=== PATIENT | female | born 1975 | race Caucasian/White ===

== ENCOUNTER → 2020-08-31 18:02 | Outpatient (CLI) | payer OTHER, SELFPAY ==
[2020-08-31 18:59] LABS: Basophils # 0.1 K/mm3 (0-0.2); Basophils % 0.7 % (0.1-2.0); Eosinophils # 0.2 K/mm3 (0.0-0.4); Eosinophils % 2.3 % (0.1-12.0); Hematocrit 46.3 % (37.0-47.0); Hemoglobin 15.5 g/dL (12.2-16.2); Lymphocytes # 3.1 K/mm3 (0.7-4.5); Lymphocytes % 34.5 % (10-50); Mean Corpuscular HGB Conc 33.5 g/dL (31.8-35.4); Mean Corpuscular Hemoglobin 31.9 pg (27.0-31.2); Mean Corpuscular Volume 95.1 fl (81-99); Monocytes # 0.3 K/mm3 (0.1-1.0); Monocytes % 3.3 % (1.7-9.3); Neutrophils # 5.3 K/mm3 (1.8-7.8); Neutrophils % 59.3 % (37.0-80.0); Platelet Count 316 K/mm3 (142-424); Red Blood Count 4.87 M/mm3 (4.20-5.40); Red Cell Distribution Width 13.1 % (11.5-17.5); White Blood Count 8.9 K/mm3 (4.8-10.8)
[2020-08-31 19:06] LABS: Chloride 97 mmol/L (98-107); Sodium 135 mmol/L (136-145)
[2020-08-31 19:08] LABS: Alanine Aminotransferase 17 U/L (12-78); Aspartate Amino Transferase 19 U/L (14-36); Blood Urea Nitrogen 14 mg/dl (7-17); Estimated Glomerular Filt Rate 110 ml/min (>60); GFR (African American) 133 ML/MIN (>60)
[2020-08-31 19:09] LABS: Albumin/Globulin Ratio 1.7 (1.1-1.8); Alkaline Phosphatase 77 U/L (38-126); Bilirubin,Total 0.3 mg/dl (0.2-1.3); Calcium 9.4 mg/dl (8.4-10.2); Carbon Dioxide 31 mmol/L (22.0-30.0); Cholesterol 268 mg/dl (140-200); Globulin 2.4 g/dL (1.3-3.2); HDL Cholesterol 30 mg/dl (40-60); Total Protein,Serum 6.4 g/dl (6.3-8.2)
[2020-08-31 19:20] LABS: Direct LDL Cholesterol 76.07 mg/dL (100-129)
[2020-08-31 19:23] LABS: Triglycerides 1009 mg/dl (30-150)
[2020-08-31 19:24] LABS: Chol/HDL Ratio 8.9 (1-3.5); Glucose 606 mg/dl (74-100)
[2020-08-31 21:39] LABS: Hemoglobin A1C 14.9 % (4.0-6.0)
== END ==
PROVIDERS: Visit Provider Family Medicine
DX: M79.7 Fibromyalgia (principal); E11.9 Type 2 diabetes mellitus without complications; F32.9 Major depressive disorder, single episode, unspecified; F41.9 Anxiety disorder, unspecified; Z79.4 Long term (current) use of insulin
CPT/HCPCS: 80053; 80061; 83036; 85025

== ENCOUNTER → 2020-09-09 15:18 | Outpatient (CLI) | payer MEDICAID, SELFPAY ==
--- NOTE | 2020-09-09 15:18 | CT_ITS ---
PROCEDURE: CT ABDOMEN PELVIS WO CON CLINICAL INDICATION: hepatomegaly NAUSEA, MID ABD PAIN, RIGHT SIDE ABD TENDERNESS X 3 WEEKS NO PRIOR COMPARISON: No exams were available for comparison TECHNIQUE: Axial images obtained with sagittal and coronal reformats. All CT scans at the facility use one or more dose reduction, viz: automated exposure control, ma/kV adjustment per patient size (including targeted exams where dose is matched to indication, i.e. head), or iterative reconstruction technique. FINDINGS: LOWER THORAX: There are atelectatic changes in the lung bases. ABDOMEN & PELVIS: The liver, spleen, and pancreas have an unremarkable appearance. There is mild nodularity of the left adrenal gland at 8 mm with an average density of 6 Hounsfield units consistent with an adenoma. No renal or ureteral calculi. No obvious renal mass on this unenhanced exam. The gallbladder has an unremarkable appearance. Unremarkable appendix. No intestinal obstruction or free air. There are few scattered colonic diverticula but no evidence of diverticulitis. The uterus shows some minimal lobularity anteriorly nonspecific. Pelvic ultrasound may provide more thorough evaluation. There is small amount of fluid in the cul-de-sac. Minimally prominent small bowel loops in the left upper quadrant measuring up to 3 cm without air-fluid levels nonspecific. Multiple unopacified bowel loops in the abdomen or pelvis which could obscure or mimic pathology. If symptoms persist, consider repeat exam with IV and oral contrast.. No acute bony findings. There are postsurgical changes of the anterior abdominal wall in the infraumbilical area IMPRESSION: 1. No evidence of appendicitis or obstructing ureteral calculus. 2. Mildly prominent small bowel loops in the left upper quadrant of questionable clinical significance. Multiple unopacified bowel loops in the abdomen or pelvis which could obscure or mimic pathology. If symptoms persist, consider repeat exam with IV and oral contrast. 3. Minimal lobularity of the uterus anteriorly which may be better evaluated with ultrasound with a scant amount of fluid in the pelvis. Dictated by: Jose Raul Vega MD 09/10/2020 09:05 Jose Raul Vega MD in [place] 09/10/2020 09:05
== END ==
PROVIDERS: PCP Family Medicine; Visit Provider Family Medicine
DX: R10.9 Unspecified abdominal pain (principal); R16.0 Hepatomegaly, not elsewhere classified
CPT/HCPCS: 74176

== ENCOUNTER → 2020-09-14 14:27 | Outpatient (CLI) | payer MEDICAID, SELFPAY ==
[2020-09-14 14:36] LABS: Chloride 102 mmol/L (98-107); Potassium 3.7 mmoL/L (3.5-5.1); Sodium 136 mmol/L (136-145)
[2020-09-14 14:38] LABS: Alanine Aminotransferase 14 U/L (12-78); Albumin Level 3.2 g/dl (3.5-5.0); Albumin/Globulin Ratio 1.4 (1.1-1.8); Alkaline Phosphatase 72 U/L (38-126); Anion Gap 10.7 mEq/L (5-15); Aspartate Amino Transferase 18 U/L (14-36); Basophils # 0.1 K/mm3 (0-0.2); Basophils % 0.5 % (0.1-2.0); Bilirubin,Total 0.2 mg/dl (0.2-1.3); Blood Urea Nitrogen 15 mg/dl (7-17); Carbon Dioxide 27 mmol/L (22.0-30.0); Eosinophils # 0.2 K/mm3 (0.0-0.4); Eosinophils % 1.5 % (0.1-12.0); Estimated Glomerular Filt Rate 110 ml/min (>60); GFR (African American) 133 ML/MIN (>60); Globulin 2.3 g/dL (1.3-3.2); Hematocrit 44.2 % (37.0-47.0); Hemoglobin 13.9 g/dL (12.2-16.2); Lymphocytes # 2.7 K/mm3 (0.7-4.5); Lymphocytes % 23.2 % (10-50); Mean Corpuscular HGB Conc 31.4 g/dL (31.8-35.4); Mean Corpuscular Hemoglobin 30.6 pg (27.0-31.2); Mean Corpuscular Volume 97.5 fl (81-99); Mean Platelet Volume 8.6 fl (7.4-10.4); Monocytes # 0.5 K/mm3 (0.1-1.0); Monocytes % 4.3 % (1.7-9.3); Neutrophils # 8.2 K/mm3 (1.8-7.8); Neutrophils % 70.5 % (37.0-80.0); Platelet Count 374 K/mm3 (142-424); Red Blood Count 4.53 M/mm3 (4.20-5.40); Red Cell Distribution Width 13.6 % (11.5-17.5); Total Protein,Serum 5.5 g/dl (6.3-8.2); White Blood Count 11.6 K/mm3 (4.8-10.8)
[2020-09-14 14:39] LABS: Calcium 8.6 mg/dl (8.4-10.2); Chol/HDL Ratio 6.7 (1-3.5); Cholesterol 247 mg/dl (140-200); Glucose 287 mg/dl (74-100); HDL Cholesterol 37 mg/dl (40-60); Triglycerides 354 mg/dl (30-150); VLDL Cholesterol 71 mg/dL (0-40)
[2020-09-14 14:50] LABS: Direct LDL Cholesterol 148.67 mg/dL (100-129)
[2020-09-14 14:56] LABS: T4 (Thyroxine) 7.7 ug/dl (5.53-11.0)
[2020-09-14 15:00] LABS: Creatinine,Urine Random 70 mg/dL (Not Estab.)
[2020-09-14 15:10] LABS: Thyroid Stimulating Hormone 3.39 uIU/mL (0.465-4.68)
[2020-09-14 15:12] LABS: Hemoglobin A1C 12.3 % (4.0-6.0)
[2020-09-14 15:51] LABS: Microalbumin < 6.000 mg/L (0-16.7)
== END ==
PROVIDERS: Visit Provider Family Medicine
DX: E11.9 Type 2 diabetes mellitus without complications (principal); Z79.4 Long term (current) use of insulin
CPT/HCPCS: 80053; 80061; 82043; 82570; 83036; 84436; 84443; 85025

== ENCOUNTER → 2021-02-09 13:51 | Outpatient (CLI) | payer OTHER, MEDICAID, SELFPAY ==
[2021-02-09 14:24] LABS: Chloride 104 mmol/L (98-107)
[2021-02-09 14:25] LABS: Sodium 136 mmol/L (136-145)
[2021-02-09 14:27] LABS: Alanine Aminotransferase 12 U/L (12-78); Alkaline Phosphatase 87 U/L (38-126); Aspartate Amino Transferase 22 U/L (14-36); Bilirubin,Total 0.2 mg/dl (0.2-1.3); Blood Urea Nitrogen 11 mg/dl (7-17); Carbon Dioxide 28 mmol/L (22.0-30.0); Estimated Glomerular Filt Rate 135 ml/min (>60); GFR (African American) 163 ML/MIN (>60)
[2021-02-09 14:28] LABS: Albumin Level 3.6 g/dl (3.5-5.0); Albumin/Globulin Ratio 1.6 (1.1-1.8); Cholesterol 251 mg/dl (140-200); Globulin 2.3 g/dL (1.3-3.2); Glucose 261 mg/dl (74-100); HDL Cholesterol 28 mg/dl (40-60); Lipase 124 U/L (23-300); Total Protein,Serum 5.9 g/dl (6.3-8.2)
[2021-02-09 14:40] LABS: Direct LDL Cholesterol 98.69 mg/dL (100-129)
[2021-02-09 14:48] LABS: Triglycerides 847 mg/dl (30-150)
[2021-02-09 14:51] LABS: Basophils # 0.1 K/mm3 (0-0.2); Basophils % 0.5 % (0.1-2.0); Eosinophils # 0.3 K/mm3 (0.0-0.4); Eosinophils % 2.7 % (0.1-12.0); Hematocrit 44.4 % (37.0-47.0); Hemoglobin 14.4 g/dL (12.2-16.2); Lymphocytes # 3.3 K/mm3 (0.7-4.5); Lymphocytes % 30.9 % (10-50); Mean Corpuscular HGB Conc 32.4 g/dL (31.8-35.4); Mean Corpuscular Hemoglobin 30.6 pg (27.0-31.2); Mean Corpuscular Volume 94.4 fl (81-99); Mean Platelet Volume 7.9 fl (7.4-10.4); Monocytes # 0.3 K/mm3 (0.1-1.0); Monocytes % 3.2 % (1.7-9.3); Neutrophils # 6.6 K/mm3 (1.8-7.8); Neutrophils % 62.6 % (37.0-80.0); Platelet Count 360 K/mm3 (142-424); White Blood Count 10.5 K/mm3 (4.8-10.8)
[2021-02-09 14:59] LABS: Microalbumin/Creatinine Ratio 36.9
[2021-02-09 15:00] LABS: Creatinine,Urine Random 65 mg/dL (Not Estab.); Thyroid Stimulating Hormone 1.19 uIU/mL (0.465-4.68)
[2021-02-09 15:09] LABS: 25-OH Vitamin D, Total < 12.8 ng/mL (30-100)
[2021-02-09 16:53] LABS: Hemoglobin A1C > 14.0 % (4.0-6.0)
[2021-02-09 20:04] LABS: T4 (Thyroxine) 7.2 ug/dl (5.53-11.0)
== END ==
PROVIDERS: Visit Provider Family Medicine
DX: E11.9 Type 2 diabetes mellitus without complications (principal); Z79.4 Long term (current) use of insulin; Z79.899 Other long term (current) drug therapy
CPT/HCPCS: 80053; 80061; 82043; 82306; 82570; 83036; 83690; 84436; 84443; 85025

== ENCOUNTER → 2021-03-09 17:57 | Outpatient (CLI) | payer OTHER, MEDICAID, SELFPAY ==
[2021-03-09 19:38] LABS: Lipase 600 U/L (23-300)
== END ==
PROVIDERS: Visit Provider Family Medicine
DX: R10.9 Unspecified abdominal pain (principal)
CPT/HCPCS: 83690

== ENCOUNTER 2021-03-10 18:44 | Emergency (ER) | payer OTHER, MEDICAID, SELFPAY ==
[2021-03-10 19:10] VITALS: BP 126/75; PULSE 84; RESP 16; TEMP 36.8; O2SAT 97; BMI 27.4
--- NOTE | 2021-03-10 19:40 | CT_ITS ---
PROCEDURE: CT ABDOMEN PELVIS W CON CLINICAL INDICATION: RUQ pain Epigastric and left upper quadrant pain COMPARISON: CT CT ABDOMEN PELVIS WO CON from 09/09/2020 TECHNIQUE: IV Contrast: 75ML Isovue 370 Oral Contrast None Axial images obtained with sagittal and coronal reformats. All CT scans at the facility use one or more dose reduction, viz: automated exposure control, ma/kV adjustment per patient size (including targeted exams where dose is matched to indication, i.e. head), or iterative reconstruction technique. FINDINGS: LOWER THORAX: Atelectatic are fibrotic changes are present in the right middle lobe and lingula. Faint ground-glass attenuation noted in the lung bases ABDOMEN & PELVIS: The liver, spleen, adrenal glands, pancreas, and kidneys show no acute finding. There is some mild scarring of the left kidney. No renal or ureteral calculi. No intestinal obstruction or free air. There is a mild amount of retained colonic feces. The appendix is slightly prominent but there is no stranding of the periappendiceal fat. Air is present in the vaginal region consistent with a tampon. No pelvic mass or abnormal fluid collection. There is colonic diverticulosis but no evidence of diverticulitis. There is a tiny umbilical hernia containing fat Scattered small sclerotic foci in the ilium and sacrum suggesting small bone islands. IMPRESSION: 1. No acute finding. 2. Mild amount of retained colonic feces. 3. Colonic diverticulosis but no evidence of diverticulitis Dictated by: Jose Raul Vega MD 03/11/2021 09:26 Jose Raul Vega MD in [place] 03/11/2021 09:26
[2021-03-10 20:15] LABS: Basophils # 0.1 K/mm3 (0-0.2); Basophils % 0.6 % (0.1-2.0); Eosinophils # 0.2 K/mm3 (0.0-0.4); Eosinophils % 1.4 % (0.1-12.0); Hematocrit 41.9 % (37.0-47.0); Lymphocytes # 3.8 K/mm3 (0.7-4.5); Lymphocytes % 27.4 % (10-50); Mean Corpuscular HGB Conc 33.4 g/dL (31.8-35.4); Mean Corpuscular Hemoglobin 30.2 pg (27.0-31.2); Mean Corpuscular Volume 90.6 fl (81-99); Mean Platelet Volume 6.8 fl (7.4-10.4); Monocytes # 0.4 K/mm3 (0.1-1.0); Monocytes % 2.7 % (1.7-9.3); Neutrophils # 9.4 K/mm3 (1.8-7.8); Neutrophils % 67.9 % (37.0-80.0); Platelet Count 339 K/mm3 (142-424); Red Blood Count 4.63 M/mm3 (4.20-5.40); Red Cell Distribution Width 13.3 % (11.5-17.5); White Blood Count 13.8 K/mm3 (4.8-10.8)
--- NOTE | 2021-03-10 20:17 | HMH.EDABDPAI ---
ED Disposition Clinical Impression: Abdominal pain Qualifiers: Abdominal location: generalized Qualified Code(s): R10.84 - Generalized abdominal pain Diabetes Qualifiers: Diabetes mellitus type: type 2 Diabetes mellitus penitentiary insulin use: unspecified penitentiary insulin use status Diabetes mellitus complication status: without complication Qualified Code(s): E11.9 - Type 2 diabetes mellitus without complications Disposition: Home, Self-Care Condition on Discharge: Good Instructions: DI for Acute Abdominal Pain Additional Instructions: Please follow up with Dr. Burton as soon as possible for further evaluation of your abdominal pain. Please have your gastric emptying study done as an outpatient. Please return to the ER within 24-48 hours with any new symptoms, worsening symptoms, or other concerns. Referrals: nAil Burton MD [Primary Care Provider] - - Critical Care Critical Care Time: No Attestation: On 03/10/21, the high probability of a clinically significant, sudden or life threatening deterioration of the following system(s) required my full and direct attention, intervention and personal management. The time I documented below is in addition to time spent performing reported procedures but includes the following listed in this critical care notation. Medical Decision Making - Jorge Inquiry Pt receiving controlled substance: No Vital Signs: 03/10/21 19:10 Temperature 98.3 F Temperature Source Oral Pulse Rate [Right] 84 Respiratory Rate 16 Blood Pressure [Right Arm] 126/75 Blood Pressure Mean [Right Arm] 92 Blood Pressure Source [Right Arm] Automatic Cuff Blood Pressure Position [Right Arm] Supine 02 Sat by Pulse Oximetry 97 Oxygen Delivery Method Room Air - Lab Data Lab Results 03/10/21 19:50: WBC 13.8 H, RBC 4.63, Hgb 14.0, Hct 41.9, MCV 90.6, MCH 30.2, MCHC 33.4, RDW 13.3, Plt Count 339, MPV 6.8 L, Neut % (Auto) 67.9, Lymph % (Auto) 27.4, [place] % (Auto) 2.7, Eos % (Auto) 1.4, Baso % (Auto) 0.6, Neut # (Auto) 9.4 H, Lymph # (Auto) 3.8, [place] # (Auto) 0.4, Eos # (Auto) 0.2, Baso # (Auto) 0.1 03/10/21 19:50: Sodium 135 L, Potassium 4.0, Chloride 99, Carbon Dioxide 30, Anion Gap 10.0, BUN 8, Creatinine 0.60, Estimated Creat Clear 139, Estimated GFR 109, Est GFR ( Amer) 132, Glucose 264 H, Calcium 9.0, Total Bilirubin 0.4, AST 23, ALT 14, Alkaline Phosphatase 71, Total Protein 6.5, Albumin 4.1, Globulin 2.4, Albumin/Globulin Ratio 1.7, Amylase 49, Lipase 65 03/10/21 21:41: Urine Color Yellow, Urine Appearance Clear, Urine pH 6.0, Ur Specific [place] <= 1.005, Urine Protein Negative, Urine Glucose (UA) 3+, Urine Ketones Negative, Urine Blood 1+, Urine Nitrate Negative, Urine Bilirubin Negative, Urine Urobilinogen 0.2, Ur Leukocyte Esterase 1+ A 03/10/21 21:41: Urine Opiates Screen Positive H, Urine Methadone Screen Negative, Ur Barbituates Screen Negative, Ur Phencyclidine Scrn Negative, Ur Amphetamines Screen Negative, U Benzodiazepines Scrn Positive H, Urine Cocaine Screen Negative, U Marijuana (THC) Screen Positive H Result diagrams: 03/10/21 19:50 03/10/21 19:50 Orders (Tests/Meds): ED MEDICATIONS Generic Name Dose Route Start Last Admin Trade Name Freq PRN Reason Stop Dose Admin Lactated Ringer's 1,000 mls @ 999 mls/hr 03/10/21 20:15 03/10/21 20:18 Lactated Ringer's 1000 Ml Bag IV 03/10/21 21:15 999 mls/hr .Q1H1M KENYATTA Administration Morphine Sulfate 4 mg 03/10/21 20:13 03/10/21 20:17 Morphine 4mg/Ml Syringe IV 04/09/21 20:12 4 mg Q2HP PRN Administration Mild to Moderate Pain Nicotine 21 mg 03/10/21 21:34 03/10/21 21:36 Nicotine 21mg/24hr Patch TD 04/09/21 21:33 21 mg DAILYP PRN Administration Nicotine Cravings Discontinued Medications Generic Name Dose Route Start Last Admin Trade Name Freq PRN Reason Stop Dose Admin Acetaminophen 1,000 mg 03/10/21 20:50 03/10/21 20:51 Acetaminophen 500mg Tab PO 03/10/21 20:51 1,000 mg ONCE ONE
[2021-03-10 20:37] LABS: Chloride 99 mmol/L (98-107); Sodium 135 mmol/L (136-145)
[2021-03-10 20:40] LABS: Alanine Aminotransferase 14 U/L (12-78); Albumin Level 4.1 g/dl (3.5-5.0); Albumin/Globulin Ratio 1.7 (1.1-1.8); Alkaline Phosphatase 71 U/L (38-126); Amylase 49 U/L (30-110); Aspartate Amino Transferase 23 U/L (14-36); Bilirubin,Total 0.4 mg/dl (0.2-1.3); Blood Urea Nitrogen 8 mg/dl (7-17); Carbon Dioxide 30 mmol/L (22.0-30.0); Creatinine Clearance Estimated 139 mL/min (50-200); Estimated Glomerular Filt Rate 109 ml/min (>60); GFR (African American) 132 ML/MIN (>60); Globulin 2.4 g/dL (1.3-3.2); Glucose 264 mg/dl (74-100); Lipase 65 U/L (23-300); Total Protein,Serum 6.5 g/dl (6.3-8.2)
[2021-03-10 21:50] LABS: Microscopic, Urine URINE MICROSCOPIC (MICROSCOPIC)
[2021-03-10 22:03] LABS: Appearance,Urine CLEAR (Clear); Bilirubin,Urine Negative (Negative); Blood, Urine 1+ (Negative); Color,Urine YELLOW (Yellow); Glucose,Urine (UA) 3+ (Negative); Ketones,Urine Negative (Negative); Leukocyte Esterase,Urine 1+ (Negative); Nitrate,Urine Negative (Negative); Protein,Urine Negative (Negative); Specific Gravity, Urine <= 1.005 (1.005-1.030); Urobilinogen,Urine 0.2 EU/dl (0.2)
[2021-03-10 22:14] LABS: Barbiturates Screen,Urine Negative ng/ml (<200)
[2021-03-10 22:15] LABS: Amphetamine/Metha Screen,Urine Negative ng/ml (<1000); Benzodiazepines Screen,Urine Positive ng/ml (<200)
[2021-03-10 22:16] LABS: Cannabinoid Screen,Urine Positive ng/ml (<50); Cocaine Screen,Urine Negative ng/ml (<300)
[2021-03-10 22:17] LABS: Methadone Screen,Urine Negative ng/ml (<300)
[2021-03-10 22:18] LABS: Opiate Screen,Urine Positive ng/ml (<300); Phencyclidine Screen,Urine Negative ng/ml (<25)
[2021-03-10 22:33] VITALS: BP 120/87; PULSE 82; RESP 16; TEMP 36.8; O2SAT 97
[2021-03-10 22:36] LABS: Bacteria,Urine 1+ /lpf; Mucus,Urine 1+ /lpf
== END 2021-03-10 22:35 | disposition home or self-care (01) ==
PROVIDERS: Family Medicine; Emergency Provider Emergency Medicine; PCP Family Medicine
DX: R10.84 Generalized abdominal pain (principal); E11.65 Type 2 diabetes mellitus with hyperglycemia; F41.8 Other specified anxiety disorders; Z20.822 Contact with and (suspected) exposure to COVID-19; F17.210 Nicotine dependence, cigarettes, uncomplicated; Z88.8 Allergy status to other drugs, medicaments and biological substances; F12.10 Cannabis abuse, uncomplicated; F19.10 Other psychoactive substance abuse, uncomplicated; Z79.899 Other long term (current) drug therapy
CPT/HCPCS: 74177; 80053; 80305; 81001; 82150; 83690; 85025; 87086; 96375; 99283; J2405; Q9967; U0003

== ENCOUNTER 2021-03-16 17:08 | Observation (INO) | payer OTHER, MEDICAID, SELFPAY ==
[2021-03-16 17:15] VITALS: BP 121/64; PULSE 89; RESP 18; TEMP 36.6; O2SAT 97
[2021-03-16 17:48] VITALS: BMI 27.6
--- NOTE | 2021-03-16 17:48 | CT_ITS ---
PROCEDURE: CT ABDOMEN PELVIS WO CON CLINICAL INDICATION: r/o pancreatitis Right upper quadrant pain with diarrhea COMPARISON: CT CT ABDOMEN PELVIS W CON from 03/10/2021 TECHNIQUE: Axial images obtained with sagittal and coronal reformats. All CT scans at the facility use one or more dose reduction, viz: automated exposure control, ma/kV adjustment per patient size (including targeted exams where dose is matched to indication, i.e. head), or iterative reconstruction technique. FINDINGS: LOWER THORAX: There is some scarring within the lingula and right middle lobe ABDOMEN & PELVIS: The liver, spleen, adrenal glands, pancreas, and kidneys have an unremarkable unenhanced appearance. There is scattered colonic diverticula but no evidence of diverticulitis. There is a mild amount of retained colonic feces. No evidence of appendicitis, intestinal obstruction or free air. There are few air-fluid levels with within the colon which may represent colitis/diarrhea disease no obvious pelvic mass or abnormal fluid collection. There are few scattered small sclerotic foci of the pelvis suggesting small bone islands. IMPRESSION: Scattered air-fluid levels in the colon nondistended suggesting colitis/diarrhea disease otherwise negative Dictated by: Jose Raul Vega MD 03/17/2021 08:34 Jose Raul Vega MD in [place] 03/17/2021 08:34
[2021-03-16 18:26] LABS: Chloride 101 mmol/L (98-107); Potassium 3.8 mmoL/L (3.5-5.1); Sodium 137 mmol/L (136-145)
[2021-03-16 18:28] LABS: Blood Urea Nitrogen 11 mg/dl (7-17); Creatinine Clearance Estimated 167 mL/min (50-200); Estimated Glomerular Filt Rate 135 ml/min (>60); GFR (African American) 163 ML/MIN (>60)
[2021-03-16 18:29] LABS: Alanine Aminotransferase 12 U/L (12-78); Albumin Level 4.1 g/dl (3.5-5.0); Albumin/Globulin Ratio 1.6 (1.1-1.8); Alkaline Phosphatase 78 U/L (38-126); Anion Gap 8.8 mEq/L (5-15); Aspartate Amino Transferase 23 U/L (14-36); Bilirubin,Total 0.3 mg/dl (0.2-1.3); Calcium 9.3 mg/dl (8.4-10.2); Carbon Dioxide 31 mmol/L (22.0-30.0); Globulin 2.6 g/dL (1.3-3.2); Glucose 155 mg/dl (74-100); Lipase 96 U/L (23-300); Total Protein,Serum 6.7 g/dl (6.3-8.2)
[2021-03-16 18:30] LABS: Basophils # 0.1 K/mm3 (0-0.2); Basophils % 0.7 % (0.1-2.0); Eosinophils # 0.3 K/mm3 (0.0-0.4); Hematocrit 44.3 % (37.0-47.0); Lymphocytes # 3.7 K/mm3 (0.7-4.5); Lymphocytes % 34.6 % (10-50); Mean Corpuscular Hemoglobin 30.7 pg (27.0-31.2); Mean Corpuscular Volume 90.4 fl (81-99); Mean Platelet Volume 7.2 fl (7.4-10.4); Monocytes # 0.3 K/mm3 (0.1-1.0); Monocytes % 3.2 % (1.7-9.3); Neutrophils # 6.3 K/mm3 (1.8-7.8); Neutrophils % 58.5 % (37.0-80.0); Platelet Count 319 K/mm3 (142-424); Red Blood Count 4.89 M/mm3 (4.20-5.40); Red Cell Distribution Width 13.1 % (11.5-17.5); White Blood Count 10.8 K/mm3 (4.8-10.8)
[2021-03-16 18:47] VITALS: O2SAT 97
--- NOTE | 2021-03-16 19:11 | PC.NURSE ---
Report given to YOANDY Deshpande.
--- NOTE | 2021-03-16 19:15 | HMH.HP ---
*Admission Date: 03/16/21 *Chief complaint: abdominal pain *History of present illness: Patient is a 45-year-old white female, history of poorly controlled diabetes, presents to the office with worsening abdominal pain. The pain is localized to her mid epigastric region. She relays worsening severity. She is followed in the office, and on a recent occasion had a lipase of 600. A1c greater than 14. She was subsequently seen in the emergency room, at that point her lipase had normalized. CT of the abdomen was unremarkable. She was given morphine without relief, did receive Dilaudid x1 dose with some transient relief. She relays that the pain worsened since her ER evaluation. The patient has undergone EGD and was planning to have gastric emptying studies and colonoscopy soon. Her p.o. intake is diminished, and some element of diabetic gastroparesis is suspected. 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 She required extensive surgery and debridement, has had issues with bowel control subsequently. She is admitted for hydration, further evaluation of abdominal pain, gastric emptying, and analgesia. She appears to be quite uncomfortable in the office, bloating and mid epigastric tenderness. Review of labs from the office showed an elevated triglyceride, level exceeding 800, which could point a possible etiology of recurrent pancreatitis. Patient denies ingestion of alcohol. She does report polyps in her gallbladder but cannot delineate specifics. Compliance with insulin regimen has been very poor. Elevated A1c reflects this. P.o. intake has been erratic, patient is concerned with hypoglycemia. Will monitor on a sliding scale regimen. [facility] History Medical History: Reports:: Anxiety, Depression, Diabetes Mellitus Type 2 *Have you ever received a pneumonia vaccine?: No *Have you received a flu vaccine this season?: No Other Surgeries: Yes: - *Social History Smoking Status: Current every day smoker Tobacco Type: cigarettes # Packs/Day (cigarettes): 2 Alcohol Intake: former Substance Use Type: marijuana, prescription drug *Occupational Status:: unemployed *Travel in the last 8 weeks: None - Psychiatric History Pschychiatric History:: Reports:: Anxiety, Depression Family Hx:: Unable to obtain Review of Systems - Constitutional Reports anorexia, Reports lack of energy, Reports malaise - Eyes Denies change in vision - ENT Denies abnormal hearing - *Cardiovascular Denies chest pain - *Respiratory Denies chest congestion - *Gastrointestinal Reports abdominal pain, Reports bloating, Reports change in bowel habits, Reports cramping, Reports loose stools, Reports incontinent of stools, Reports constant urge to pass stool, Reports vomiting - *Genitourinary Denies abnormal periods - *Musculoskeletal Reports muscle weakness - Integumentary/Breasts Denies yellowing of the skin - *Neurologic Reports weakness - Psychiatric Reports anxiety - Endocrine Denies increased hunger - Hematologic/Lymphatic Denies easy bleeding - Allergic/Immunologic Reports GI upset with certain foods Meds Home Medications Medication Instructions Recorded Confirmed Type sumatriptan succinate 50 mg tablet 50 mg PO Q2H PRN 08/31/20 03/16/21 History alprazolam 1 mg tablet 1 mg PO BID PRN #60 tab 01/08/21 03/16/21 Rx buspirone 15 mg tablet 15 mg PO TID PRN #90 tab 01/08/21 03/16/21 Rx ondansetron HCl 4 mg tablet 4 mg PO Q6H PRN #45 tab 02/12/21 03/16/21 Rx plecanatide 3 mg tablet 3 mg PO DAILY 02/23/21 03/16/21 History Gabapentin [Gabapentin 300mg Cap] 600 mg PO QID 03/10/21 03/16/21 History Hydrocodone/Acetaminophen 1 each PO QID 03/10/21 03/16/21 History [Hydrocodone-Acetamin 10-325 mg] Insulin Glargine,Hum.rec.anlog 30 unit SQ DAILY 03/10/21 03/16/21 History [Basaglar KwikPen U-100 Insulin] Insulin Lispro [Insulin Lispro 10 unit SQ TID 03/10/21 03/16/21 History Kwikpen U-100]
[2021-03-16 20:00] VITALS: BP 116/69; PULSE 84; RESP 18; TEMP 36.8; O2SAT 99
[2021-03-16 20:05] VITALS: O2SAT 99
[2021-03-16 20:16] LABS: POC Glucose,Bedside 200 (70-110)
--- NOTE | 2021-03-16 21:14 | PC.NURSE ---
DR. LORA AT BEDSIDE
--- NOTE | 2021-03-16 21:40 | PC.NURSE ---
PT REQUESTS XANAX 2MG PO THAT SHE TAKES QHS. ORDERED BY DR. LORA BUT FOR 03/17/[address] 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 ORDERS RECEIVED TO ADMINISTER PER EMAR WELL IV PROTONIX. GIVEN PER EMAR UNSCHEDULED DOSE
--- NOTE | 2021-03-17 | NM_ITS ---
PROCEDURE: NM GASTRIC EMPTYING STUDY CLINICAL INDICATION: abdominal pain with uncontrolled diabetes COMPARISON: No exams were available for comparison TECHNIQUE: Dose 0.54 mCi technetium sulfur colloid mixed in radial labeled meal. FINDINGS: The exam is carried out over 4 hours. During this time only 32 percent of the gastric contents had emptied. No obvious reflux noted on the images. IMPRESSION: Gastro paresis Dictated by: Jose Raul Vega MD 03/17/2021 17:03 Jose Raul Vega MD in [place] 03/17/2021 17:03
--- NOTE | 2021-03-17 | US_ITS ---
PROCEDURE: US GALLBLADDER CLINICAL INDICATION: abdominal pain Abdominal pain COMPARISON: CT CT ABDOMEN PELVIS WO CON from 03/16/2021 FINDINGS: Pancreas: Unremarkable/Not well seen Liver: Unremarkable. There is appropriate direction of blood flow within a non dilated portal vein. Right kidney: Unremarkable appearing. No hydronephrosis. Gallbladder: No shadowing stones apparent. No gallbladder wall thickening pericholecystic fluid or biliary dilatation. Common bile duct is normal at 5 mm. Small polyp is present measuring 4 mm. IMPRESSION: No gallstones apparent. Small gallbladder polyp otherwise negative. Dictated by: Jose Raul Vega MD 03/17/2021 08:10 Jose Raul Vega MD in [place] 03/17/2021 08:10
[2021-03-17 04:00] VITALS: BP 105/52; PULSE 76; RESP 16; TEMP 36.5; O2SAT 97
--- NOTE | 2021-03-17 04:33 | PC.NURSE ---
PT HAS RESTED INTERMITTENTLY THIS SHIFT, PAIN MEDICATION REQUESTED EVERY 4 HOURS. PT HAS SLEPT IN BETWEEN. PT A&O X 4. VITAL SIGNS STABLE, AFEBRILE. LUNGS CTAB. HEART RATE REGULAR. IV PATENT. PT VOIDING WITHOUT DIFFICULTY. ABD SOFT, DISTENDED, MODERATELY TENDER MID UPPER ABD, BOEWL SOUNDS HYPOACTIVE. PT REPORTS CONTINUED DIARRHEA, UNCHANGED. REPORTS NO NAUSEA OR VOMITING. NO EDEMA. SCATTERED BRUISES AND SCRATCHES TO FOREARMS. CALL LIGHT WITHIN REACH. WILL CONTINUE TO MONITOR.
[2021-03-17 05:11] LABS: Microscopic, Urine URINE MICROSCOPIC (MICROSCOPIC)
[2021-03-17 05:17] LABS: Appearance,Urine CLEAR (Clear); Bilirubin,Urine Negative (Negative); Blood, Urine TRACE-I (Negative); Color,Urine YELLOW (Yellow); Glucose,Urine (UA) TRACE (Negative); Ketones,Urine Negative (Negative); Leukocyte Esterase,Urine Negative (Negative); Nitrate,Urine Negative (Negative); Protein,Urine Negative (Negative); Urobilinogen,Urine 0.2 EU/dl (0.2)
[2021-03-17 05:26] LABS: POC Glucose,Bedside 115 (70-110)
[2021-03-17 05:45] LABS: Bacteria,Urine 1+ /lpf
--- NOTE | 2021-03-17 06:20 | PC.NURSE ---
RADIOLOGY AT BEDSIDE FOR GB U/S
--- NOTE | 2021-03-17 07:45 | P.CONPHA_ITS ---
[facility] Pharmacy VTE Monitoring - Patient Demographics Admission date: 03/16/21 Report Date: 03/17/21 Time: 07:45 Allergies/Adverse Reactions: Patient Allergies empagliflozin [From Jardiance] Allergy (Unknown, Verified 03/16/21 14:46) metformin Allergy (Unknown, Verified 03/16/21 14:46) Height: 1.63 m Weight: 73.028 kg Patient Problems: Current Active Problems Abdominal pain (Acute) Gastroparesis (Acute) Hypertriglyceridemia (Acute) Tobacco abuse (Acute) Diabetes (Chronic) - VTE Risk Labs: VTE Related Lab Results Hgb 15.0 g/dL (12.2-16.2) 03/16/21 18:10 Hct 44.3 % (37.0-47.0) 03/16/21 18:10 Plt Count 319 K/mm3 (142-424) 03/16/21 18:10 BUN 11 mg/dl (7-17) 03/16/21 18:10 Creatinine 0.50 mg/dl (0.52-1.04) L 03/16/21 18:10 Estimated Creat Clear 167 mL/min (50-200) 03/16/21 18:10 VTE Risk Level: Very Low Risk - Prophylaxis VTE Prophylaxis Ordered?: Yes Types of VTE Prophylaxis: TEDS Knee High Location of Applied Device: Bilateral Lower Extremeties
--- NOTE | 2021-03-17 07:51 | HMH.PHAINT ---
MEDICATION RECONCILIATION COMPLETED ON PATIENT USING EXTERNAL FILL HISTORY FROM PHARMACY, LIST FROM MD OFFICE, AND NURSING NOTES ON HOW PATIENT TAKES XANAX. -EVERETTE TAVAREZD
[2021-03-17 08:00] VITALS: BP 112/67; PULSE 74; RESP 18; TEMP 36.6; O2SAT 95
[2021-03-17 08:09] LABS: Chol/HDL Ratio 7.3 (1-3.5); Cholesterol 220 mg/dl (140-200); HDL Cholesterol 30 mg/dl (40-60)
[2021-03-17 08:14] LABS: Triglycerides 505 mg/dl (30-150)
[2021-03-17 08:19] LABS: Direct LDL Cholesterol 76.76 mg/dL (100-129)
--- NOTE | 2021-03-17 08:43 | PC.NURSE ---
Pt taken to have nuclear scan performed.
[2021-03-17 10:08] VITALS: O2SAT 95
--- NOTE | 2021-03-17 13:09 | HMH.ACPN2 ---
Internal Medicine - PN: Subj *Date: 03/17/21 *Time: 20:35 Interval history: pt still with abd pain and has gastric study today - Exam Vital signs and Labs for Last 24 Hours: Temp Pulse Resp BP Pulse Ox 97.9 F 74 18 112/67 95 03/17/21 08:00 03/17/21 08:00 03/17/21 08:00 03/17/21 08:00 03/17/21 10:08 Laboratory Results - last 24 hr 03/16/21 18:10: WBC 10.8, RBC 4.89, Hgb 15.0, Hct 44.3, MCV 90.4, MCH 30.7, MCHC 34.0, RDW 13.1, Plt Count 319, MPV 7.2 L, Neut % (Auto) 58.5, Lymph % (Auto) 34.6, [place] % (Auto) 3.2, Eos % (Auto) 3.0, Baso % (Auto) 0.7, Neut # (Auto) 6.3, Lymph # (Auto) 3.7, [place] # (Auto) 0.3, Eos # (Auto) 0.3, Baso # (Auto) 0.1 03/16/21 18:10: Sodium 137, Potassium 3.8, Chloride 101, Carbon Dioxide 31 H, Anion Gap 8.8, BUN 11, Creatinine 0.50 L, Estimated Creat Clear 167, Estimated GFR 135, Est GFR ( Amer) 163, Glucose 155 H, Calcium 9.3, Total Bilirubin 0.3, AST 23, ALT 12, Alkaline Phosphatase 78, Total Protein 6.7, Albumin 4.1, Globulin 2.6, Albumin/Globulin Ratio 1.6 03/16/21 18:10: Lipase 96 03/16/21 20:04: POC Glucose 200 H 03/17/21 04:45: Urine Color Yellow, Urine Appearance Clear, Urine pH 6.0, Ur Specific [place] 1.010, Urine Protein Negative, Urine Glucose (UA) Trace, Urine Ketones Negative, Urine Blood Trace-i, Urine Nitrate Negative, Urine Bilirubin Negative, Urine Urobilinogen 0.2, Ur Leukocyte Esterase Negative, Urine WBC 3-5, Ur Squamous Epith Cells 5-10, Urine Bacteria 1+ 03/17/21 05:17: POC Glucose 115 H 03/17/21 06:40: Triglycerides 505 H, Cholesterol 220 H, LDL Cholesterol Direct 76.76 L, HDL Cholesterol 30 L, Cholesterol/HDL Ratio 7.3 H I & O for Last 24 hours: Intake & Output 03/15/21 03/16/21 03/17/21 03/18/21 11:59 11:59 11:59 11:59 Intake Total 1720 / 1720 Balance 1720 / 1720 Weight 161 lb Microbiology Reports for the Last 24 Hours: Microbiology 03/16/21 18:35 Nasopharyngeal Coronavirus COVID-19 PCR - Final - Constitutional no acute distress - *Routine HEENT Exam Head: Present: normocephalic Eye: Present: EOMI, PERRL ENT: Present: mucous membranes dry - *Routine Neck Exam Present: supple - *Routine Respiratory Exam Present: CTA bilaterally - *Routine Cardiovascular Exam Present: RRR - *Routine Abdominal Exam Present: soft, tenderness. 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
--- NOTE | 2021-03-17 13:36 | PC.NURSE ---
Pt back to room 279 from Radiology
[2021-03-17 13:38] VITALS: BMI 27.4
[2021-03-17 18:08] LABS: POC Glucose,Bedside 184 (70-110)
--- NOTE | 2021-03-17 19:05 | PC.NURSE ---
REPORT RECEIVED FROM Katherine FLOWERS RN
--- NOTE | 2021-03-17 19:27 | PC.NURSE ---
Report given to LeightonRN
--- NOTE | 2021-03-17 19:49 | PC.NURSE ---
pt noncomplaint with diet at [facility] time, pt had harrsion bashiros sitting on bedside table as well as diet coke, pt was educated that the order is for to have nothing to eat or drink to give her diet rest, pt states I didnt eat any of that pointing at tacos, pt continues to request ice water and states she wants it regardless of diet order, water provided at this time
[2021-03-17 20:00] VITALS: BP 142/73; PULSE 82; RESP 17; TEMP 36.9
[2021-03-17 22:08] LABS: POC Glucose,Bedside 153 (70-110)
[2021-03-18 04:00] VITALS: BP 115/62; PULSE 68; RESP 17; TEMP 36.8
--- NOTE | 2021-03-18 05:21 | INFXCTL.NOTE ---
PT has rested well throughout shift, pt is alert and oriented and able to make needs known, pt has been medicated for pain with prn medication which has been effective, lungs remain clear. heart rate regular, bs x 4 quads are hyperactive, abdomen soft but tender in RUQ and RLQ, abdominal distention noted, iv remians patent at this time, pt remains noncompliant with npo order pt has drank 20 ounce bottle of diet coke and two cups of water throughout shift, pt educated, no needs at this time will continue to monitor
[2021-03-18 06:25] LABS: POC Glucose,Bedside 158 (70-110)
[2021-03-18 06:51] LABS: Chloride 100 mmol/L (98-107); Potassium 3.7 mmoL/L (3.5-5.1); Sodium 137 mmol/L (136-145)
[2021-03-18 06:53] LABS: Basophils % 0.3 % (0.1-2.0); Blood Urea Nitrogen 5 mg/dl (7-17); Creatinine Clearance Estimated 167 mL/min (50-200); Eosinophils # 0.2 K/mm3 (0.0-0.4); Eosinophils % 3.2 % (0.1-12.0); Estimated Glomerular Filt Rate 135 ml/min (>60); GFR (African American) 163 ML/MIN (>60); Hematocrit 41.1 % (37.0-47.0); Hemoglobin 13.4 g/dL (12.2-16.2); Lymphocytes # 2.7 K/mm3 (0.7-4.5); Lymphocytes % 36.5 % (10-50); Mean Corpuscular HGB Conc 32.6 g/dL (31.8-35.4); Mean Corpuscular Hemoglobin 30.8 pg (27.0-31.2); Mean Corpuscular Volume 94.7 fl (81-99); Monocytes # 0.3 K/mm3 (0.1-1.0); Monocytes % 3.9 % (1.7-9.3); Neutrophils # 4.1 K/mm3 (1.8-7.8); Neutrophils % 56.2 % (37.0-80.0); Platelet Count 272 K/mm3 (142-424); Red Blood Count 4.34 M/mm3 (4.20-5.40); Red Cell Distribution Width 13.1 % (11.5-17.5); White Blood Count 7.3 K/mm3 (4.8-10.8)
[2021-03-18 06:54] LABS: Alanine Aminotransferase 10 U/L (12-78); Albumin Level 3.5 g/dl (3.5-5.0); Albumin/Globulin Ratio 1.6 (1.1-1.8); Alkaline Phosphatase 57 U/L (38-126); Anion Gap 7.7 mEq/L (5-15); Aspartate Amino Transferase 19 U/L (14-36); Bilirubin,Total 0.5 mg/dl (0.2-1.3); Calcium 8.9 mg/dl (8.4-10.2); Carbon Dioxide 33 mmol/L (22.0-30.0); Globulin 2.2 g/dL (1.3-3.2); Glucose 166 mg/dl (74-100); Lipase 50 U/L (23-300); Total Protein,Serum 5.7 g/dl (6.3-8.2)
--- NOTE | 2021-03-18 07:05 | PC.NURSE ---
REPORT GIVEN TO Katherine LOPEZ RN
[2021-03-18 08:40] VITALS: BP 121/64; PULSE 84; RESP 18; TEMP 36.7; O2SAT 95
[2021-03-18 11:50] VITALS: BP 150/75; PULSE 82; RESP 18; TEMP 36.6; O2SAT 95
[2021-03-18 11:52] VITALS: BP 142/88
--- NOTE | 2021-03-18 11:54 | PC.NURSE ---
1120 RN in room for bedside glucose, unable to find pt in room or bathroom. When RN was in the room 5 minutes prior, pt was putting shoes on and reported that her lower back was hurting and she needed to walk. Pt was told at that time that she was welcome to ambulate in hallways but must wear a mask and stay in the department. OB oracle database manager and roundhouse firer/fireman notified that pt was missing from room. RN searched for pt in hospital and pt was eventually found in the front lobby. Pt was out of the department for approx. 5 minutes. Pt left department without being seen. Pt reports that she was making her way to the cafeteria to find something to eat. Pt advised for the 2nd time that she is on a clear liquid diet per MD order and offered clear liquids again. Soft drink provided to pt. RN reiterated to pt that she is not to leave the department, V/U.
[2021-03-18 12:00] LABS: POC Glucose,Bedside 214 (70-110)
[2021-03-18 16:00] VITALS: BP 144/72; PULSE 79; RESP 16; TEMP 37; O2SAT 98
[2021-03-18 17:17] LABS: POC Glucose,Bedside 153 (70-110)
--- NOTE | 2021-03-18 19:00 | HMH.ACPN2 ---
Internal Medicine - PN: Subj *Date: 03/18/21 *Time: 19:01 Interval history: abdomen less tender delayed gastric emptying noted u/s and ct revd possible colitis started levaquin and flagyl Exam Vital signs and Labs for Last 24 Hours: Temp Pulse Resp BP Pulse Ox 98.6 F 79 16 144/72 H 98 03/18/21 16:00 03/18/21 16:00 03/18/21 16:00 03/18/21 16:00 03/18/21 16:00 Laboratory Results - last 24 hr 03/17/21 20:42: POC Glucose 153 H 03/18/21 06:10: WBC 7.3 D, RBC 4.34, Hgb 13.4, Hct 41.1, MCV 94.7, MCH 30.8, MCHC 32.6, RDW 13.1, Plt Count 272, MPV 7.0 L, Neut % (Auto) 56.2, Lymph % (Auto) 36.5, [place] % (Auto) 3.9, Eos % (Auto) 3.2, Baso % (Auto) 0.3, Neut # (Auto) 4.1, Lymph # (Auto) 2.7, [place] # (Auto) 0.3, Eos # (Auto) 0.2, Baso # (Auto) 0.0 03/18/21 06:10: Sodium 137, Potassium 3.7, Chloride 100, Carbon Dioxide 33 H, Anion Gap 7.7, BUN 5 L D, Creatinine 0.50 L, Estimated Creat Clear 167, Estimated GFR 135, Est GFR ( Amer) 163, Glucose 166 H, Calcium 8.9, Total Bilirubin 0.5, AST 19, ALT 10 L, Alkaline Phosphatase 57, Total Protein 5.7 L, Albumin 3.5 D, Globulin 2.2, Albumin/Globulin Ratio 1.6, Lipase 50 03/18/21 06:10: POC Glucose 158 H 03/18/21 11:37: POC Glucose 214 H 03/18/21 16:16: POC Glucose 153 H I & O for Last 24 hours: Intake & Output 03/15/21 03/16/21 03/17/21 03/18/21 23:59 23:59 23:59 23:59 Intake Total 1720 / 1720 1457 / 1457 Balance 1720 / 1720 1457 / 1457 Weight 161 lb 160 lb 14.999 oz - Constitutional no acute distress, chronically ill appearing, cooperative - *Routine HEENT Exam Head: Present: normocephalic Eye: Present: EOMI, PERRL ENT: Present: mucous membranes moist - *Routine Neck Exam Present: supple. Absent: lymphadenopathy - *Routine Respiratory Exam Present: CTA bilaterally - *Routine Cardiovascular Exam Present: RRR - *Routine Abdominal Exam Present: soft, tenderness, distended. Absent: guarding, mass - *Routine Extremities Exam Absent: cyanosis, clubbing, edema - *Routine Skin Exam Present: warm, lesions. Absent: jaundice, rash - *Routine Neurological Exam Present: alert, oriented X3 Assessment and Plan (1) Abdominal pain Status: Acute Qualifiers: Abdominal location: epigastric Qualified Code(s): R10.13 - Epigastric pain Category: Medical Code(s): R10.9 - Unspecified abdominal pain (2) Diabetes Status: Chronic Qualifiers: Diabetes mellitus type: type 2 Diabetes mellitus technician terminal and repeater insulin use: unspecified assisted insulin use status Diabetes mellitus complication status: without complication Qualified Code(s): E11.9 - Type 2 diabetes mellitus without complications Category: Medical Code(s): E11.9 - Type 2 diabetes mellitus without complications (3) Tobacco abuse Status: Acute Category: Medical Code(s): Z72.0 - Tobacco use (4) Gastroparesis Status: Acute Category: Medical Code(s): K31.84 - Gastroparesis (5) Hypertriglyceridemia Status: Acute Category: Medical Code(s): E78.1 - Pure hyperglyceridemia - Assessment and plan all Dx Assessment and Plan for all problems:: will ask for gastro consult will use reglan for dge component cover w/sliding scale continue analgesic for abdom pain
[2021-03-18 20:00] VITALS: BP 151/77; PULSE 84; RESP 18; TEMP 36.8
[2021-03-18 21:23] LABS: POC Glucose,Bedside 282 (70-110)
[2021-03-19] VITALS (16 sets, daily range): BP systolic 117–155; BP diastolic 45–83; PULSE 85–96; RESP 16–20; TEMP 36.1–36.8; O2SAT 92–98
--- NOTE | 2021-03-19 04:18 | PC.NURSE ---
pt has rested fairly well throughout shift, pt is alert and oriented and able to make needs known, lungs remain clear, pt continues to complain of RUQ tenderness, mild abdominal distention noted, bs x4 quads hypoactive, pt has been managed with prn pain medication, no n/v/d this shift, pt has remained npo since midnight was tolerating clear liquids prior to midnight, vss, iv patent, no distress noted at this time will continue to monitor at this time
[2021-03-19 06:53] LABS: POC Glucose,Bedside 212 (70-110)
--- NOTE | 2021-03-19 07:07 | PC.NURSE ---
report given to Pascual Cavazos RN
--- NOTE | 2021-03-19 07:10 | PC.NURSE ---
report given to Gagan Carrington RN
[2021-03-19 07:32] LABS: Lipase 37 U/L (23-300)
[2021-03-19 07:35] LABS: Basophils % 0.5 % (0.1-2.0); Eosinophils # 0.3 K/mm3 (0.0-0.4); Eosinophils % 4.1 % (0.1-12.0); Hemoglobin 12.2 g/dL (12.2-16.2); Lymphocytes # 2.8 K/mm3 (0.7-4.5); Lymphocytes % 42.4 % (10-50); Mean Corpuscular HGB Conc 32.2 g/dL (31.8-35.4); Mean Corpuscular Hemoglobin 30.5 pg (27.0-31.2); Mean Corpuscular Volume 94.8 fl (81-99); Mean Platelet Volume 6.8 fl (7.4-10.4); Monocytes # 0.2 K/mm3 (0.1-1.0); Monocytes % 3.5 % (1.7-9.3); Neutrophils # 3.3 K/mm3 (1.8-7.8); Neutrophils % 49.6 % (37.0-80.0); Platelet Count 243 K/mm3 (142-424); Red Cell Distribution Width 13.2 % (11.5-17.5); White Blood Count 6.7 K/mm3 (4.8-10.8)
--- NOTE | 2021-03-19 08:13 | PC.NURSE ---
Pt to Pre-op by pre-op staff for EGD.
--- NOTE | 2021-03-19 08:25 | HMH.ANESCL ---
[facility] Anesthesia Checklist - Patient Identification Patient Identification: Arm Band - Structural Data Admitted From: Inpatient Planned Operative Procedure/s: EGD Consent for Planned Operative Procedure(s) Verified: Yes - NPO Status Verified Time NPO: 00:00 - Airway Assessment Dentition: Poor Dentition (Missing) - Neurological Assessment Level of Consciousness: Awake, Alert Hx Seizures: No Numbness or tingling in extremities: No - Anesthesia Plan Anesthesia Risk discussed: Yes Anesthesia Plan: Verified ASA Class: II Anesthesia Type: MAC [facility] History I have reviewed the patient's past medical history: Yes Medical History: Reports:: Anxiety, Depression, Diabetes Mellitus Type 2 *Have you ever received a pneumonia vaccine?: No *Have you received a flu vaccine this season?: No Anesthesia experience/problems:: None Other Surgeries: Yes: - *Social History Smoking Status: Current every day smoker Tobacco Type: cigarettes # Packs/Day (cigarettes): 2 Alcohol Intake: former Substance Use Type: marijuana, prescription drug *Occupational Status:: unemployed *Travel in the last 8 weeks: None - Psychiatric History Pschychiatric History:: Reports:: Anxiety, Depression Family Hx:: Unable to obtain
[2021-03-19 08:32] LABS: Urine Pregnancy, HCG Qual. Negative (Negative)
--- NOTE | 2021-03-19 08:49 | HMH.PROC ---
[facility] Procedure Note Procedure Note:: Upper Endoscopy Procedure Report: Esophagogastroduodenoscopy with cold biopsies and TTS balloon dilation Endoscopost: Erik Marcano II, MD Referring Physician: Dilshad Burton MD Date of Procedure: March 19, 2021 Equipment: Olympus GIF 190 standard upper endoscope Sedation: MAC sedation Indications: Mrs. Bledsoe is a 45-year-old female with dyspepsia with worsening epigastric abdominal pain. The patient also reports nausea and intermittent vomiting. She has had bloating, early satiety and some dysphagia. She had an upper endoscopy in [facility] by a chemical analytical sampler. Gastric emptying studies were planned. An attempted colonoscopy was unprepped. She was brought to [facility] for evaluation. The patient does report constipation which alternates with diarrhea. She is on Zofran. She does of a history of of diabetes mellitus which has been poorly controlled. The patient also takes hydrocodone 4 times daily. Procedure: Prior to the procedure, a history and physical exam was performed, and patient's medications and allergies were reviewed. The risks, benefits and alternatives of the sedation and procedure were discussed with the patient. All questions were answered and informed consent was obtained. The patient was brought to the procedure room. Patient identification and proposed procedure were verified by the physician and the nurse. The patient was placed in a left lateral decubitus position and the scope was passed under direct vision. Throughout the procedure, the patient's blood pressure, pulse, and oxygen saturations were monitored continuously. The upper GI endoscopy was accomplished without difficulty. The patient tolerated the procedure well. Findings: The scope was passed directly into the upper esophagus and advanced to the third portion of the duodenum. The post bulbar duodenum and duodenal bulb were normal with normal mucosa and conniventes. Cold biopsies were taken from the duodenum to rule out celiac disease. The scope was withdrawn through a normal duodenal bulb and pylorus into the stomach. There was linear erythema of the antrum and body of the stomach with bile reflux. There was also stasis of digestive food content with fat micelles and oily appearance to the retained gastric solid and liquid food content. Upon retroflexion there was a very small sliding 1 to 2 cm hiatal hernia. 2 biopsies were taken in the antrum and along the lesser curvature for histology to rule out gastritis and/or H pylori. The scope was then withdrawn into the esophagus. There was no evidence of reflux esophagitis or Menjivar's. There was strong tertiary contractions and evidence of moderate esophageal dysmotility. The entire esophagus was dilated to 60 [place]/20 mm with a TTS hydrostatic balloon. There was some resistance at the cricopharyngeus. The remainder of the esophageal mucosa was normal. Impression: 1. Cricopharyngeal spasm status post dilation to 20 mm 2. Nonerosive GERD with moderate esophageal dysmotility 3. Retained gastric solid/liquid food content?rule out gastroparesis 4. 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 I will recommend dietary measures, fiber bowel regimen and promotility therapy. I will follow-up the biopsies. She should return to her primary chemical analytical sampler in [facility] to resume further evaluation. Would consider gastric emptying study but findings on endoscopy are strongly suggestive of gastroparesis. Would consider Reglan if tolerable. If not, could consider erythromycin.
--- NOTE | 2021-03-19 09:45 | PC.NURSE ---
Pt. arrived to room 279, via wheelchair. Pt. eating ice chips. Temperature checked axillary due to Ice chip consumption. Pt. requests to eat food, Awaiting MD order. Pt. denies needs, will continue to monitor.
--- NOTE | 2021-03-19 10:14 | DIET.NUTRFU ---
Nutritional assessment/consult completed. Pt given in depth diet education/counseling for poorly controlled DM with gastroparesis. Pt voiced understanding and ability to apply information. Pt strongly encouraged to f/u through OP nutrition counseling.
[2021-03-19 10:23] LABS: Chloride 102 mmol/L (98-107); Potassium 3.6 mmoL/L (3.5-5.1); Sodium 135 mmol/L (136-145)
[2021-03-19 10:25] LABS: Blood Urea Nitrogen 8 mg/dl (7-17); Creatinine Clearance Estimated 167 mL/min (50-200); Estimated Glomerular Filt Rate 135 ml/min (>60); GFR (African American) 163 ML/MIN (>60)
[2021-03-19 10:26] LABS: Alanine Aminotransferase 10 U/L (12-78); Albumin Level 3.2 g/dl (3.5-5.0); Albumin/Globulin Ratio 1.5 (1.1-1.8); Alkaline Phosphatase 50 U/L (38-126); Anion Gap 6.6 mEq/L (5-15); Aspartate Amino Transferase 26 U/L (14-36); Bilirubin,Total 0.3 mg/dl (0.2-1.3); Calcium 8.5 mg/dl (8.4-10.2); Carbon Dioxide 30 mmol/L (22.0-30.0); Globulin 2.1 g/dL (1.3-3.2); Glucose 186 mg/dl (74-100); Total Protein,Serum 5.3 g/dl (6.3-8.2)
[2021-03-19 10:41] LABS: POC Glucose,Bedside 151 (70-110)
--- NOTE | 2021-03-19 13:02 | HMH.DCSUM ---
General - General Admission date:: 03/16/21 Discharge date: 03/19/21 HPI HPI: Patient is a 45-year-old white female, history of poorly controlled diabetes, presents to the office with worsening abdominal pain. The pain is localized to her mid epigastric region. She relays worsening severity. She is followed in the office, and on a recent occasion had a lipase of 600. A1c greater than 14. She was subsequently seen in the emergency room, at that point her lipase had normalized. CT of the abdomen was unremarkable. She was given morphine without relief, did receive Dilaudid x1 dose with some transient relief. She relays that the pain worsened since her ER evaluation. The patient has undergone EGD and was planning to have gastric emptying studies and colonoscopy soon. Her p.o. intake is diminished, and some element of diabetic gastroparesis is suspected. 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 She required extensive surgery and debridement, has had issues with bowel control subsequently. She is admitted for hydration, further evaluation of abdominal pain, gastric emptying, and analgesia. She appears to be quite uncomfortable in the office, bloating and mid epigastric tenderness. Review of labs from the office showed an elevated triglyceride, level exceeding 800, which could point a possible etiology of recurrent pancreatitis. Patient denies ingestion of alcohol. She does report polyps in her gallbladder but cannot delineate specifics. Compliance with insulin regimen has been very poor. Elevated A1c reflects this. P.o. intake has been erratic, patient is concerned with hypoglycemia. Will monitor on a sliding scale regimen. Hospital Course Hospital Course: admitted for abdominal pain, recalcitrant and recurrent peak [id number], normal in house covered via sliding scale insulin regimen taken for gastric emptying study, suggestive of gastroparesis taken for egd today per Dr Marcano Impression: 1. Cricopharyngeal spasm status post dilation to 20 mm 2. Nonerosive GERD with moderate esophageal dysmotility 3. Retained gastric solid/liquid food content?rule out gastroparesis 4. 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 I will recommend dietary measures, fiber bowel regimen and promotility therapy. I will follow-up the biopsies. She should return to her primary stock feeder in [facility] to resume further evaluation. Would consider gastric emptying study but findings on endoscopy are strongly suggestive of gastroparesis. Would consider Reglan if tolerable. If not, could consider erythromycin. will send pt home with plans to follow up as an outpatient Rhogam Administration: Not Indicated Objective Vital signs: Temp Pulse Resp BP Pulse Ox 98.2 F 91 H 18 129/73 96 03/19/21 11:45 03/19/21 11:45 03/19/21 11:45 03/19/21 11:45 03/19/21 11:45 no acute distress - *Routine HEENT Exam Head: Present: normocephalic Eye: Present: EOMI, PERRL ENT: Present: mucous membranes moist - *Routine Neck Exam Present: supple - *Routine Respiratory Exam Present: CTA bilaterally - *Routine Cardiovascular Exam Present: RRR - *Routine Abdominal Exam Present: soft, tenderness, distended. Absent: guarding, organomegaly, mass - *Routine Extremities Exam Absent: cyanosis, clubbing, edema - *Routine Skin Exam Present: warm. Absent: rash Results Labs on day of discharge: Labs from last 24 hours 03/19/21 03/19/21 03/19/21 10:34 08:10 07:10 WBC 6.7 RBC 4.00 L Hgb 12.2 Hct 38.0 MCV 94.8 MCH 30.5 MCHC 32.2 RDW 13.2 Plt Count 243 MPV 6.8 L Neut % (Auto) 49.6 Lymph % (Auto) 42.4 [place] % (Auto) 3.5 Eos % (Auto) 4.1 Baso % (Auto) 0.5 Neut # (Auto) 3.3 Lymph # (Auto) 2.8 [place] # (Auto) 0.2
--- NOTE | 2021-03-19 14:55 | PC.NURSE ---
Discharge education provided. Questions encouraged and answered. Pt. and family member v/u. Pt. given dilaudid per MD order for pain, Family member agrees to care for and drive pt. home. IV removed from LAC, 2X2 with coban in place. Pt. tolerated well.
--- NOTE | 2021-03-19 15:05 | PC.NURSE ---
Pt. left unit ambulatory per pt. request.
--- NOTE | 2021-03-19 15:10 | PC.NURSE ---
Discharge education provided. Questions encouraged and answered. Pt. and family member v/u. Pt. given dilaudid per MD order for pain, Family member agrees to care for and drive pt. home.
== END 2021-03-19 15:05 | disposition home or self-care (01) ==
PROVIDERS: Emergency Medicine; Internal Medicine Gastroenterology; Admitting Provider Family Medicine; PCP Family Medicine; Visit Provider Family Medicine
PROC: 0DJ08ZZ Inspection of Upper Intestinal Tract, Via Natural or Artificial Opening Endoscopic (ICD-10-PCS; CPT 43235; principal; 2021-03-19 14:00)
DX: E11.43 Type 2 diabetes mellitus with diabetic autonomic (poly)neuropathy (principal); E11.65 Type 2 diabetes mellitus with hyperglycemia; K31.84 Gastroparesis; Z79.4 Long term (current) use of insulin; K21.9 Gastro-esophageal reflux disease without esophagitis; K22.2 Esophageal obstruction
CPT/HCPCS: 43239; 43249; 36415; 74176; 76705; 78264; 80053; 80061; 81001; 81025; 82962; 83690; 85025; 88305; A9541; C1726; G0378; J1956; U0003

== ENCOUNTER → 2021-04-02 16:59 | Outpatient (CLI) | payer OTHER, MEDICAID, SELFPAY ==
[2021-04-02 18:13] LABS: Lipase 159 U/L (23-300)
== END ==
PROVIDERS: Visit Provider Family Medicine
DX: K31.84 Gastroparesis (principal); E11.9 Type 2 diabetes mellitus without complications; Z79.4 Long term (current) use of insulin
CPT/HCPCS: 83036; 83690

== ENCOUNTER → 2021-06-02 18:38 | Outpatient (CLI) | payer OTHER, MEDICAID, SELFPAY ==
[2021-06-02 19:10] LABS: Basophils # 0.1 K/mm3 (0-0.2); Basophils % 1.1 % (0.1-2.0); Eosinophils # 0.2 K/mm3 (0.0-0.4); Eosinophils % 2.1 % (0.1-12.0); Hematocrit 44.7 % (37.0-47.0); Hemoglobin 14.8 g/dL (12.2-16.2); Lymphocytes # 2.4 K/mm3 (0.7-4.5); Lymphocytes % 27.3 % (10-50); Mean Corpuscular HGB Conc 33.2 g/dL (31.8-35.4); Mean Corpuscular Volume 90.4 fl (81-99); Mean Platelet Volume 7.8 fl (7.4-10.4); Monocytes # 0.4 K/mm3 (0.1-1.0); Neutrophils # 5.7 K/mm3 (1.8-7.8); Neutrophils % 65.5 % (37.0-80.0); Platelet Count 357 K/mm3 (142-424); Red Blood Count 4.94 M/mm3 (4.20-5.40); Red Cell Distribution Width 13.8 % (11.5-17.5); White Blood Count 8.7 K/mm3 (4.8-10.8)
[2021-06-02 19:42] LABS: Hemoglobin A1C 11.6 % (4.0-6.0)
[2021-06-02 20:02] LABS: Alanine Aminotransferase 9 U/L (12-78); Albumin Level 4.1 g/dl (3.5-5.0); Albumin/Globulin Ratio 1.5 (1.1-1.8); Alkaline Phosphatase 84 U/L (38-126); Anion Gap 12.9 mEq/L (5-15); Aspartate Amino Transferase 17 U/L (14-36); Bilirubin,Total 0.4 mg/dl (0.2-1.3); Blood Urea Nitrogen 9 mg/dl (7-17); Calcium 9.3 mg/dl (8.4-10.2); Carbon Dioxide 29 mmol/L (22.0-30.0); Chloride 100 mmol/L (98-107); Chol/HDL Ratio 7.6 (1-3.5); Cholesterol 283 mg/dl (140-200); Estimated Glomerular Filt Rate 109 ml/min (>60); GFR (African American) 132 ML/MIN (>60); Globulin 2.7 g/dL (1.3-3.2); Glucose 225 mg/dl (74-100); HDL Cholesterol 37 mg/dl (40-60); Potassium 4.9 mmoL/L (3.5-5.1); Sodium 137 mmol/L (136-145); Total Protein,Serum 6.8 g/dl (6.3-8.2); Triglycerides 378 mg/dl (30-150); VLDL Cholesterol 76 mg/dL (0-40)
[2021-06-02 20:13] LABS: Direct LDL Cholesterol 164.76 mg/dL (100-129)
[2021-06-02 20:18] LABS: 25-OH Vitamin D, Total 16.9 ng/mL (30-100)
[2021-06-02 20:19] LABS: T4 (Thyroxine) 6.8 ug/dl (5.53-11.0)
[2021-06-02 20:33] LABS: Thyroid Stimulating Hormone 1.68 uIU/mL (0.465-4.68)
== END ==
PROVIDERS: Visit Provider Nurse Practitioner Family
DX: E11.9 Type 2 diabetes mellitus without complications (principal); E78.1 Pure hyperglyceridemia; F17.210 Nicotine dependence, cigarettes, uncomplicated; E55.9 Vitamin D deficiency, unspecified; Z79.4 Long term (current) use of insulin
CPT/HCPCS: 80053; 80061; 82306; 83036; 84436; 84443; 84681; 85025

== ENCOUNTER → 2022-04-15 16:46 | Outpatient (CLI) | payer OTHER, MEDICAID, SELFPAY ==
[2022-04-15 13:58] LABS: Hemoglobin A1C 8.9 % (4.0-6.0)
== END ==
PROVIDERS: PCP Family Medicine; Visit Provider Family Medicine
DX: E11.9 Type 2 diabetes mellitus without complications (principal); Z79.4 Long term (current) use of insulin
CPT/HCPCS: 83036

== ENCOUNTER → 2023-03-20 23:11 | Outpatient (CLI) | payer OTHER, MEDICAID, SELFPAY ==
[2023-03-20 18:45] LABS: Basophils # 0.1 K/mm3 (0-0.2); Basophils % 0.4 % (0.1-2.0); Eosinophils # 0.3 K/mm3 (0.0-0.4); Eosinophils % 1.9 % (0.1-12.0); Hematocrit 41.4 % (37.0-47.0); Hemoglobin 13.3 g/dL (12.2-16.2); Lymphocytes # 2.6 K/mm3 (0.7-4.5); Lymphocytes % 19.3 % (10-50); Mean Corpuscular HGB Conc 32.1 g/dL (31.8-35.4); Mean Corpuscular Hemoglobin 30.3 pg (27.0-31.2); Mean Corpuscular Volume 94.6 fl (81-99); Mean Platelet Volume 7.7 fl (7.4-10.4); Monocytes # 0.4 K/mm3 (0.1-1.0); Monocytes % 3.2 % (1.7-9.3); Neutrophils # 10.2 K/mm3 (1.8-7.8); Neutrophils % 75.3 % (37.0-80.0); Platelet Count 465 K/mm3 (142-424); Red Blood Count 4.38 M/mm3 (4.20-5.40); Red Cell Distribution Width 14.4 % (11.5-17.5); White Blood Count 13.6 K/mm3 (4.8-10.8)
[2023-03-20 19:17] LABS: Alanine Aminotransferase 20 U/L (12-78); Albumin/Globulin Ratio 1.7 (1.1-1.8); Alkaline Phosphatase 79 U/L (38-126); Anion Gap 10.7 mEq/L (5-15); Aspartate Amino Transferase 24 U/L (14-36); Bilirubin,Total 0.3 mg/dl (0.2-1.3); Blood Urea Nitrogen 19 mg/dl (7-17); Calcium 8.7 mg/dl (8.4-10.2); Carbon Dioxide 31 mmol/L (22.0-30.0); Chloride 100 mmol/L (98-107); Chol/HDL Ratio 9.7 (1-3.5); Cholesterol 280 mg/dl (140-200); Estimated Glomerular Filt Rate 68 ml/min (>60); GFR (African American) 82 ML/MIN (>60); Globulin 2.4 g/dL (1.3-3.2); Glucose 155 mg/dl (74-100); HDL Cholesterol 29 mg/dl (40-60); Potassium 4.7 mmoL/L (3.5-5.1); Sodium 137 mmol/L (136-145); Total Protein,Serum 6.4 g/dl (6.3-8.2); Triglycerides 332 mg/dl (30-150); VLDL Cholesterol 66 mg/dL (0-40)
[2023-03-20 19:29] LABS: Direct LDL Cholesterol 170.56 mg/dL (100-129)
[2023-03-20 19:47] LABS: Thyroid Stimulating Hormone 0.96 uIU/mL (0.465-4.68)
[2023-03-20 20:51] LABS: Hemoglobin A1C 7.8 % (4.0-6.0)
== END ==
PROVIDERS: PCP Physician Assistant; Visit Provider Physician Assistant
DX: E11.9 Type 2 diabetes mellitus without complications (principal); Z79.4 Long term (current) use of insulin; Z79.899 Other long term (current) drug therapy
CPT/HCPCS: 80053; 80061; 83036; 84443; 85025

== ENCOUNTER → 2023-08-03 23:54 | Outpatient (CLI) | payer OTHER, MEDICAID, SELFPAY ==
[2023-08-03 19:32] LABS: Basophils # 0.1 K/mm3 (0-0.2); Basophils % 0.5 % (0.1-2.0); Eosinophils # 0.3 K/mm3 (0.0-0.4); Eosinophils % 2.5 % (0.1-12.0); Hematocrit 45.4 % (37.0-47.0); Hemoglobin 14.4 g/dL (12.2-16.2); Lymphocytes # 2.6 K/mm3 (0.7-4.5); Mean Corpuscular HGB Conc 31.8 g/dL (31.8-35.4); Mean Corpuscular Hemoglobin 29.3 pg (27.0-31.2); Mean Corpuscular Volume 92.2 fl (81-99); Mean Platelet Volume 7.8 fl (7.4-10.4); Monocytes # 0.5 K/mm3 (0.1-1.0); Monocytes % 3.5 % (1.7-9.3); Neutrophils # 9.6 K/mm3 (1.8-7.8); Neutrophils % 73.4 % (37.0-80.0); Platelet Count 334 K/mm3 (142-424); Red Blood Count 4.92 M/mm3 (4.20-5.40); Red Cell Distribution Width 15.1 % (11.5-17.5); White Blood Count 13.1 K/mm3 (4.8-10.8)
[2023-08-03 19:34] LABS: Alanine Aminotransferase 33 U/L (12-78); Albumin/Globulin Ratio 1.4 (1.1-1.8); Alkaline Phosphatase 103 U/L (38-126); Anion Gap 13.4 mEq/L (5-15); Aspartate Amino Transferase 31 U/L (14-36); Bilirubin,Total 0.2 mg/dl (0.2-1.3); Blood Urea Nitrogen 13 mg/dl (7-17); Carbon Dioxide 25 mmol/L (22.0-30.0); Chloride 102 mmol/L (98-107); Chol/HDL Ratio 13.4 (1-3.5); Cholesterol 309 mg/dl (140-200); Estimated Glomerular Filt Rate 68 ml/min (>60); GFR (African American) 82 ML/MIN (>60); Globulin 2.8 g/dL (1.3-3.2); Glucose 208 mg/dl (74-100); HDL Cholesterol 23 mg/dl (40-60); Potassium 4.4 mmoL/L (3.5-5.1); Sodium 136 mmol/L (136-145); Total Protein,Serum 6.8 g/dl (6.3-8.2)
[2023-08-03 19:44] LABS: Triglycerides 552 mg/dl (30-150)
[2023-08-03 19:45] LABS: Direct LDL Cholesterol 150.66 mg/dL (100-129)
[2023-08-03 19:52] LABS: Hemoglobin A1C 8.3 % (4.0-6.0)
== END ==
PROVIDERS: PCP Family Medicine; Visit Provider Family Medicine
DX: E11.9 Type 2 diabetes mellitus without complications (principal); F42.9 Obsessive-compulsive disorder, unspecified; Z79.4 Long term (current) use of insulin; Z79.899 Other long term (current) drug therapy
CPT/HCPCS: 80053; 80061; 83036; 85025

== ENCOUNTER 2023-12-13 18:24 | Outpatient (CLI) | payer OTHER, SELFPAY ==
[2023-12-13 18:33] LABS: Alanine Aminotransferase 23 U/L (12-78); Albumin Level 4.1 g/dl (3.5-5.0); Albumin/Globulin Ratio 1.8 (1.1-1.8); Alkaline Phosphatase 81 U/L (38-126); Anion Gap 14.5 mEq/L (5-15); Aspartate Amino Transferase 25 U/L (14-36); Bilirubin,Total 0.2 mg/dl (0.2-1.3); Blood Urea Nitrogen 10 mg/dl (7-17); Calcium 8.5 mg/dl (8.4-10.2); Carbon Dioxide 23 mmol/L (22.0-30.0); Chloride 102 mmol/L (98-107); Chol/HDL Ratio 6.6 (1-3.5); Cholesterol 152 mg/dl (140-200); Estimated Glomerular Filt Rate 77 ml/min (>60); GFR (African American) 93 ML/MIN (>60); Globulin 2.3 g/dL (1.3-3.2); Glucose 283 mg/dl (74-100); HDL Cholesterol 23 mg/dl (40-60); Potassium 4.5 mmoL/L (3.5-5.1); Sodium 135 mmol/L (136-145); Total Protein,Serum 6.4 g/dl (6.3-8.2); Triglycerides 374 mg/dl (30-150); VLDL Cholesterol 75 mg/dL (0-40)
[2023-12-13 18:44] LABS: Direct LDL Cholesterol 70.66 mg/dL (100-129)
[2023-12-13 20:45] LABS: Hemoglobin A1C 8.3 % (4.0-6.0)
[2023-12-21 10:14] LABS: 1,25 Dihydroxy Vitamin D 16 pg/mL (.); 1,25-Dihydroxy, Vitamin D-2 <10 pg/mL (.); 1,25-Dihydroxy, Vitamin D-3 16 pg/mL (.)
== END 2023-12-13 23:59 ==
LOC: LAB.DROPOF 18:24
PROVIDERS: PCP Family Medicine; Visit Provider Family Medicine
DX: Z00.00 Encounter for general adult medical examination without abnormal findings (principal); E11.9 Type 2 diabetes mellitus without complications; E55.9 Vitamin D deficiency, unspecified; Z79.899 Other long term (current) drug therapy; Z79.4 Long term (current) use of insulin
CPT/HCPCS: 80053; 80061; 82652; 83036

== ENCOUNTER 2024-06-13 13:46 | Outpatient (CLI) | payer OTHER, SELFPAY ==
[2024-06-13 19:14] LABS: Alanine Aminotransferase 162 U/L (12-78); Albumin Level 3.3 g/dl (3.5-5.0); Albumin/Globulin Ratio 1.4 (1.1-1.8); Alkaline Phosphatase 95 U/L (38-126); Anion Gap 10.7 mEq/L (5-15); Aspartate Amino Transferase 41 U/L (14-36); Bilirubin,Total 0.5 mg/dl (0.2-1.3); Blood Urea Nitrogen 11 mg/dl (7-17); Calcium 9.4 mg/dl (8.4-10.2); Carbon Dioxide 27 mmol/L (22.0-30.0); Chloride 105 mmol/L (98-107); Estimated Glomerular Filt Rate 67 ml/min (>60); GFR (African American) 82 ML/MIN (>60); Globulin 2.4 g/dL (1.3-3.2); Glucose 282 mg/dl (74-100); Potassium 4.7 mmoL/L (3.5-5.1); Sodium 138 mmol/L (136-145); Total Protein,Serum 5.7 g/dl (6.3-8.2)
[2024-06-13 19:22] LABS: Hemoglobin A1C 8.7 % (4.0-6.0)
== END 2024-06-13 23:59 | disposition home or self-care (01) ==
LOC: LAB.DROPOF 06-14 13:46
PROVIDERS: PCP Family Medicine; Visit Provider Family Medicine
DX: E11.9 Type 2 diabetes mellitus without complications (principal)
CPT/HCPCS: 80053; 83036

== ENCOUNTER 2024-08-05 12:08 | Outpatient (CLI) | payer OTHER, SELFPAY ==
[2024-08-05 20:27] LABS: Alanine Aminotransferase 22 U/L (12-78); Albumin Level 3.8 g/dl (3.5-5.0); Albumin/Globulin Ratio 1.5 (1.1-1.8); Alkaline Phosphatase 69 U/L (38-126); Anion Gap 8.7 mEq/L (5-15); Aspartate Amino Transferase 25 U/L (14-36); Bilirubin,Total 0.3 mg/dl (0.2-1.3); Blood Urea Nitrogen 12 mg/dl (7-17); Calcium 8.8 mg/dl (8.4-10.2); Carbon Dioxide 27 mmol/L (22.0-30.0); Chloride 101 mmol/L (98-107); Estimated Glomerular Filt Rate 77 ml/min (>60); GFR (African American) 93 ML/MIN (>60); Globulin 2.6 g/dL (1.3-3.2); Glucose 346 mg/dl (74-100); Potassium 4.7 mmoL/L (3.5-5.1); Sodium 132 mmol/L (136-145); Total Protein,Serum 6.4 g/dl (6.3-8.2)
== END 2024-08-05 23:59 | disposition home or self-care (01) ==
LOC: LAB.DROPOF 08-06 12:08
PROVIDERS: PCP Family Medicine; Visit Provider Family Medicine
DX: F41.9 Anxiety disorder, unspecified (principal)
CPT/HCPCS: 80053

== ENCOUNTER 2025-01-17 12:40 | Outpatient (CLI) | payer OTHER, SELFPAY ==
[2025-01-17 18:15] LABS: Basophils # 0.1 K/mm3 (0-0.2); Basophils % 0.6 % (0.1-2.0); Eosinophils # 0.2 K/mm3 (0.0-0.4); Eosinophils % 2.6 % (0.1-12.0); Hematocrit 38.5 % (37.0-47.0); Hemoglobin 12.6 g/dL (12.2-16.2); Lymphocytes # 2.4 K/mm3 (0.7-4.5); Lymphocytes % 29.4 % (10-50); Mean Corpuscular HGB Conc 32.7 g/dL (31.8-35.4); Mean Corpuscular Hemoglobin 29.9 pg (27.0-31.2); Mean Corpuscular Volume 91.4 fl (81-99); Mean Platelet Volume 9.6 fl (7.4-10.4); Monocytes # 0.3 K/mm3 (0.1-1.0); Monocytes % 4.1 % (1.7-9.3); Neutrophils # 5.1 K/mm3 (1.8-7.8); Neutrophils % 63.2 % (37.0-80.0); Platelet Count 302 K/mm3 (142-424); Red Blood Count 4.21 M/mm3 (4.20-5.40); White Blood Count 8.1 K/mm3 (4.8-10.8)
[2025-01-17 18:29] LABS: Creatinine,Urine Random 66 mg/dL (Not Estab.)
[2025-01-17 18:33] LABS: Microalbumin/Creatinine Ratio 208.4
[2025-01-17 18:36] LABS: Albumin Level 4.1 g/dl (3.5-5.0); Chloride 98 mmol/L (98-107)
[2025-01-17 18:37] LABS: Potassium 4.5 mmoL/L (3.5-5.1); Sodium 133 mmol/L (136-145)
[2025-01-17 18:39] LABS: Alanine Aminotransferase 23 U/L (12-78); Aspartate Amino Transferase 25 U/L (14-36); Blood Urea Nitrogen 11 mg/dl (7-17); Estimated Glomerular Filt Rate 67 ml/min (>60); GFR (African American) 81 ML/MIN (>60)
[2025-01-17 18:40] LABS: Albumin/Globulin Ratio 2.2 (1.1-1.8); Alkaline Phosphatase 81 U/L (38-126); Anion Gap 13.5 mEq/L (5-15); Bilirubin,Total 0.2 mg/dl (0.2-1.3); Calcium 8.9 mg/dl (8.4-10.2); Carbon Dioxide 26 mmol/L (22.0-30.0); Chol/HDL Ratio 6.3 (1-3.5); Cholesterol 157 mg/dl (140-200); Globulin 1.9 g/dL (1.3-3.2); Glucose 364 mg/dl (74-100); HDL Cholesterol 25 mg/dl (40-60); Triglycerides 398 mg/dl (30-150); VLDL Cholesterol 80 mg/dL (0-40)
[2025-01-17 18:51] LABS: Direct LDL Cholesterol 67.14 mg/dL (100-129)
== END 2025-01-17 23:59 | disposition home or self-care (01) ==
LOC: LAB.DROPOF 01-18 11:54
PROVIDERS: PCP Family Medicine; Visit Provider Family Medicine
DX: E11.9 Type 2 diabetes mellitus without complications (principal); Z79.4 Long term (current) use of insulin
CPT/HCPCS: 80053; 80061; 82043; 82570; 85025

== ENCOUNTER 2025-04-11 14:40 | Outpatient (CLI) | payer OTHER, SELFPAY ==
[2025-04-11 18:21] LABS: Basophils % 0.4 % (0.1-2.0); Eosinophils # 0.2 Kmm3 (0.0-0.4); Eosinophils % 2.1 % (0.1-12.0); Hematocrit 37.1 % (37.0-47.0); Hemoglobin 12.2 g/dL (12.2-16.2); Immature Granulocytes # 0.03 10^3uL; Immature Granulocytes % 0.3 %; Lymphocytes # 2.9 K/mm3 (0.7-4.5); Lymphocytes % 30.3 % (10-50); Mean Corpuscular HGB Conc 32.9 g/dL (31.8-35.4); Mean Corpuscular Volume 91.4 fl (81-99); Mean Platelet Volume 9.6 fl (7.4-10.4); Monocytes # 0.5 K/mm3 (0.1-1.0); Monocytes % 4.6 % (1.7-9.3); Neutrophils % 62.3 % (37.0-80.0); Nucleated Red Blood Cells # 0 10^3/uL; Nucleated Red Blood Cells % 0 %; Platelet Count 285 K/mm3 (142-424); Red Blood Count 4.06 M/mm3 (4.20-5.40); Red Cell Distribution Width 13.4 % (11.5-17.5); White Blood Count 9.7 K/mm3 (4.8-10.8)
[2025-04-11 19:12] LABS: Alanine Aminotransferase 14 U/L (12-78); Albumin Level 4.2 g/dl (3.5-5.0); Albumin/Globulin Ratio 1.9 (1.1-1.8); Alkaline Phosphatase 57 U/L (38-126); Anion Gap 10.5 mEq/L (5-15); Aspartate Amino Transferase 22 U/L (14-36); Bilirubin,Total 0.3 mg/dl (0.2-1.3); Blood Urea Nitrogen 17 mg/dl (7-17); Calcium 8.9 mg/dl (8.4-10.2); Carbon Dioxide 27 mmol/L (22.0-30.0); Chloride 105 mmol/L (98-107); Chol/HDL Ratio 2.9 (1-3.5); Cholesterol 115 mg/dl (140-200); Estimated Glomerular Filt Rate 67 ml/min (>60); GFR (African American) 81 ML/MIN (>60); Globulin 2.2 g/dL (1.3-3.2); Glucose 119 mg/dl (74-100); HDL Cholesterol 39 mg/dl (40-60); Potassium 4.5 mmoL/L (3.5-5.1); Sodium 138 mmol/L (136-145); Total Protein,Serum 6.4 g/dl (6.3-8.2); Triglycerides 161 mg/dl (30-150); VLDL Cholesterol 32 mg/dL (0-40)
[2025-04-11 19:24] LABS: Direct LDL Cholesterol 47.75 mg/dL (100-129)
[2025-04-11 19:56] LABS: HIV Combo NEGATIVE (Negative)
[2025-04-11 20:04] LABS: Hepatitis C Ab Qual. W/ RFX NEGATIVE (Negative)
== END 2025-04-11 23:59 | disposition home or self-care (01) ==
LOC: LAB.DROPOF 04-14 14:41
PROVIDERS: PCP Family Medicine; Visit Provider Family Medicine
DX: Z11.59 Encounter for screening for other viral diseases (principal); Z11.4 Encounter for screening for human immunodeficiency virus [HIV]; E11.9 Type 2 diabetes mellitus without complications; R30.0 Dysuria; N39.0 Urinary tract infection, site not specified; B96.20 Unspecified Escherichia coli [E. coli] as the cause of diseases classified elsewhere
CPT/HCPCS: 80053; 80061; 85025; 86803; 87086; 87088; 87186; 87389

== ENCOUNTER 2025-07-09 11:29 | Outpatient (CLI) | payer OTHER, SELFPAY ==
--- OUTSIDE RECORDS SUMMARY | 2016-08-27 08:16 | XMS_ITS | Continuity of Care Document ---
Author Organization [facility] o Address [address] [place] [address] Phone Care Team Providers Care Operations Officer Trust Department Name Role Phone Wally Diaz MD Unavailable Unavailable Allergies, Adverse Reactions, Alerts Substance Reaction Status Criticality No Known Allergies Active No Inform ation Medications Medication Instructions Dosage Effective Dates (start - stop) Status Comments tramadol 50 mg tablet take 1 tablet by oral route every 8 hours as needed 50 MG - Active diclofenac sodium 75 mg tablet,delayed release take 1 tablet by oral route 2 times every day 75 MG - Active CYMBALTA (unknown strength) Not Available - Active HUMALOG (unknown strength) Not Available - Active BUSPIRONE HCL (unknown strength) Not Available - Active Procedures Procedure Date Office/outpatient visit,est, mod 2015 Office/outpatient visit,new, mod 2015 X-ray exam of shoulder, complete 2015 Advance Directives Directive Yes / No Effective Date File Name No Information Encounters Encounter Description Practice Location Reason(s) For Visit Diagnoses Date Provider Providers Copied on Encounter [facility], [address] [place] [address], [id number], [place] tel:[phone] 00 [facility] No Information 6 Joe Lo. [address] [place], [place], [id number] . tel:[phone] Office/outpat ient visit,est, mod [facility], [address] [place] [address], [address], [place] tel:[phone] 00 [facility] No Information 6 Joe Wally. [address], [place], [place], [id number] . tel:[phone] Office/outpat ient visit,[facility], [address] [facility], [place], [address], [place] tel:[phone] 00 [facility] No Information 2 6 Lulu Motainn. [address], [place], [address], [place]. tel:[phone] Family History Family Member Type Diagnosis Age At Onset Problem (finding) Family history of Cance r, unknown Payers Payer name Insurance type Covered constitution party ID Elizabeth westtwin(s) [facility] Medicaid - [id number] Social History Type Description Quantity Date Captured Comments Sex Female Smoking Status No Information Chief Complaint And Reason For Visit No Information Reason For Referral Reason For Referral No Information Plan Of Treatment Date Type Action Status Future Order: Radiology Order MR I Shoulder WO Contrast ([id number]), Ordered on: Ordered Future Order: Radiology Order MR I Shoulder WO Contrast ([id number]), Ordered on: Ordered History Of Present Illness Encounter Date Complaint History Of Prese nt Illness No Information Functional Status Date Functional Assessmen t No Information Instructions Date Instruction Additional Infor mation No Information Assessments Type Assessment Date No Information Patient Care Teams Name Effective Dates (start - stop) Status Members No Information
[2025-07-09 20:00] LABS: Hematocrit 37.8 % (37.0-47.0); Hemoglobin 12.3 g/dL (12.2-16.2); Immature Granulocytes % 0.2 %; Mean Corpuscular HGB Conc 32.5 g/dL (31.8-35.4); Mean Corpuscular Hemoglobin 30.0 pg (27.0-31.2); Mean Corpuscular Volume 92.2 fl (81-99); Nucleated Red Blood Cells % 0 %; Platelet Count 268 K/mm3 (142-424); Red Blood Count 4.10 M/mm3 (4.20-5.40); Red Cell Distribution Width-SD 47.3 fL; White Blood Count 10.0 K/mm3 (4.8-10.8)
[2025-07-09 20:26] LABS: Alanine Aminotransferase 15 U/L (12-78); Albumin Level 4.1 g/dl (3.5-5.0); Albumin/Globulin Ratio 2.1 (1.1-1.8); Alkaline Phosphatase 77 U/L (38-126); Anion Gap 9.3 mEq/L (5-15); Aspartate Amino Transferase 25 U/L (14-36); Blood Urea Nitrogen 13 mg/dl (7-17); Calcium 9.2 mg/dl (8.4-10.2); Carbon Dioxide 29 mmol/L (22.0-30.0); Chloride 103 mmol/L (98-107); Creatinine,Serum 0.90 mg/dl (0.52-1.04); Estimated Glomerular Filt Rate 67 ml/min (>60); GFR (African American) 81 ML/MIN (>60); Globulin 2.0 g/dL (1.3-3.2); Glucose 195 mg/dl (74-100); Potassium 5.3 mmoL/L (3.5-5.1); Sodium 136 mmol/L (136-145); Total Protein,Serum 6.1 g/dl (6.3-8.2)
[2025-07-09 20:33] LABS: NT Pro Brain Natriuretic Pep. 148 pg/mL (0-125)
[2025-07-09 20:36] LABS: Bilirubin,Total 0.1 mg/dl (0.2-1.3)
--- OUTSIDE RECORDS SUMMARY | 2025-07-11 11:36 | XMS_ITS | Clinical Summary ---
Author Organization [facility] [facility] Address [address] [id number] Phone Care Team Providers Care Senior Software Test Engineer Name Role Phone Forensic Structural Engineer Unavailable Unavailable Conditions or Problems No information available. Medications No information available. Medications Administered No information available. Allergies, Adverse Reactions, Alerts No information available. Results No information available. Plan of Care No information available. Procedures No information available. Vital Signs No information available. Immunizations No information available. Advance Directives No information available.
== END 2025-07-09 23:59 | disposition home or self-care (01) ==
LOC: LAB.DROPOF 07-11 11:30
PROVIDERS: PCP Family Medicine; Visit Provider Family Medicine
DX: E11.9 Type 2 diabetes mellitus without complications (principal); I50.9 Heart failure, unspecified; R10.84 Generalized abdominal pain; R31.9 Hematuria, unspecified
CPT/HCPCS: 80053; 83880; 85025; 87086; 87186

== ENCOUNTER 2025-11-03 14:47 | Outpatient (CLI) | payer OTHER, SELFPAY ==
[2025-11-03 19:09] LABS: Hematocrit 38.3 % (37.0-47.0); Hemoglobin 12.3 g/dL (12.2-16.2); Immature Granulocytes % 0.2 %; Mean Corpuscular HGB Conc 32.1 g/dL (31.8-35.4); Mean Corpuscular Hemoglobin 30.1 pg (27.0-31.2); Mean Corpuscular Volume 93.6 fl (81-99); Nucleated Red Blood Cells % 0 %; Platelet Count 280 K/mm3 (142-424); Red Blood Count 4.09 M/mm3 (4.20-5.40); Red Cell Distribution Width-SD 46.0 fL; White Blood Count 12.3 K/mm3 (4.8-10.8)
[2025-11-03 19:32] LABS: Alanine Aminotransferase 19 U/L (12-78); Albumin Level 4.3 g/dl (3.5-5.0); Albumin/Globulin Ratio 1.8 (1.1-1.8); Alkaline Phosphatase 75 U/L (38-126); Anion Gap 15.2 mEq/L (5-15); Aspartate Amino Transferase 23 U/L (14-36); Bilirubin,Total 0.3 mg/dl (0.2-1.3); Blood Urea Nitrogen 11 mg/dl (7-17); Calcium 9.1 mg/dl (8.4-10.2); Carbon Dioxide 26 mmol/L (22.0-30.0); Chloride 103 mmol/L (98-107); Cholesterol 116 mg/dl (140-200); Creatinine,Serum 0.90 mg/dl (0.52-1.04); Estimated Glomerular Filt Rate 67 ml/min (>60); GFR (African American) 81 ML/MIN (>60); Globulin 2.4 g/dL (1.3-3.2); Glucose 210 mg/dl (74-100); HDL Cholesterol 29 mg/dl (40-60); Potassium 4.2 mmoL/L (3.5-5.1); Sodium 140 mmol/L (136-145); Total Protein,Serum 6.7 g/dl (6.3-8.2); Triglycerides 202 mg/dl (30-150)
== END 2025-11-03 23:59 | disposition home or self-care (01) ==
LOC: LAB.DROPOF 11-04 11:34
PROVIDERS: PCP Family Medicine; Visit Provider Family Medicine
DX: K31.84 Gastroparesis (principal); E11.9 Type 2 diabetes mellitus without complications; R42 Dizziness and giddiness
CPT/HCPCS: 80053; 80061; 82043; 82570; 85025